=== PATIENT | male | born 1960 | race Caucasian/White ===

== ENCOUNTER 2017-12-21 08:04 | Emergency (ER) | payer OTHER ==
[~2017-12-21] VITALS: Ht 162.6 cm; Wt 77.1 kg
[2017-12-21] MEDS ORDERED: KETO10TA2 PO (10:40)
[2017-12-21] MEDS ORDERED: DUI500 PO (10:40)
[2017-12-21] MEDS ORDERED: MUPIROCIN22 GM TOP (10:40)
== END 2017-12-21 11:16 | disposition home or self-care (01) ==
LOC: ER 08:04
DX: S90.32XA Contusion of left foot, initial encounter (principal); L08.89 Other specified local infections of the skin and subcutaneous tissue; W26.8XXA Contact with other sharp object(s), not elsewhere classified, initial encounter; Y93.89 Activity, other specified; Y92.832 Beach as the place of occurrence of the external cause; Y99.8 Other external cause status

== ENCOUNTER 2019-06-08 07:29 | Emergency (ER) | payer OTHER ==
[~2019-06-08] VITALS: Ht 162.6 cm; Wt 72.6 kg
[~2019-06-08 07:29] MED LIST: DUI500 PO; KETO10TA2 PO; MUPIROCIN22 GM TOP
[2019-06-08] MEDS ORDERED: NORFLEX100MG PO (08:30)
[2019-06-08] MEDS ORDERED: DICLOFENAC SODI75 MG PO (08:30)
== END 2019-06-08 08:53 | disposition home or self-care (01) ==
LOC: ER 07:29
DX: M54.5 Low back pain (principal)